=== PATIENT | male | born 1950 | race African-American/Black ===

== ENCOUNTER 2018-07-03 00:23 | Emergency (ER) | payer MEDICARE, OTHER ==
--- NOTE | 2018-07-03 00:38 | ED Physician Chart ---
ED Chief Complaint/HPI - Patient Information Date Seen:: 07/03/18 Time Seen:: 00:37 Chief Complaint:: Bilateral lower extremities edema History of Present Illness:: 68 yo male was brought from [facility] to ER for evaluation of bilateral lower extremities throbbing pain and edema for 3-4 days. Patient had history of left lower extremity DVT 2-3 years ago currently on eliquis 5mg bid. Patient stated that he could ambulate with walker for short distance. Patient denied any fever. Allergies:: Allergies Allergy/AdvReac Type Severity Reaction Status Date / Time No Known Allergies Allergy Verified 12/11/17 19:58 ED Review of Systems - Review of Systems General/Constitutional: No fever Skin: No bruising Head: No headache Eyes: No pain ENT: No nasal drainage Neck: No neck pain Cardio Vascular: No chest pain Pulmonary: No SOB GI: No nausea, No vomiting Musculoskeletal: Bone or joint pain Neurological: Weakness ED Past Medical History - Past Medical History Past Medical History: HTN, DM, CHF, Asthma/COPD, DVT/PE, Other (BPH) Social History: Smoker, No Alcohol, No Drug Use Surgical History: None Family Medical History - Family Member Mother History Unknown: Yes Hx Family Cancer: No Hx Family Coronary Artery Disease: No Hx Family Congestive Heart Failure: No Hx Family Hypertension: No Hx Family Stroke: No Hx Family Diabetes: No Hx Family Seizures: No Hx Family Dementia: No Hx Family AIDS: No Hx Family HIV: No Hx Family COPD: No Hx Family Hepatitis: No Hx Family Psychiatric Problems: No Hx Family Tuberculosis: No ED Physical Exam - Physical Examination General/Constitutional: Awake, Alert Head: Atraumatic Eyes: PERRL, EOMI Skin: No ecchymosis ENMT: Nasal exam nl Neck: No nuchal rigidity Respiratory: Nl effort/Exclusion Cardio Vascular: RRR, No murmur, gallop, rubs, NL S1 S2 GI: No tenderness/rebounding/guarding Other Extremities comments:: Diffuse 2+ edema of bilateral lower extremities, with warmness Neuro/Psych: Alert/oriented ED Labs/Radiology/EKG Results - Lab Results Results: Laboratory Last Values WBC 5.8 Th/cmm (4.8-10.8) 07/03/18 01:40 RBC 4.27 Mil/cmm (3.80-5.80) 07/03/18 01:40 Hgb 12.7 gm/dL (12-16) 07/03/18 01:40 Hct 38.8 % (41.0-60) L 07/03/18 01:40 MCV 90.8 fl (80-99) 07/03/18 01:40 MCH 29.7 pg (27.0-31.0) 07/03/18 01:40 MCHC Differential 32.7 pg (28.0-36.0) 07/03/18 01:40 RDW 16.9 % (11.5-20.0) 07/03/18 01:40 Plt Count 260 Th/cmm (150-400) 07/03/18 01:40 MPV 8.0 fl 07/03/18 01:40 Neutrophils % 54.1 % (40.0-80.0) 07/03/18 01:40 Lymphocytes % 33.5 % (20.0-50.0) 07/03/18 01:40 Monocytes % 9.3 % (2.0-10.0) 07/03/18 01:40 Eosinophils % 3.1 % (0.0-5.0) 07/03/18 01:40 Basophils % 0.0 % (0.0-2.0) 07/03/18 01:40 PT 10.3 SECONDS (9.5-11.5) 07/03/18 01:40 INR 0.99 (0.5-1.4) 07/03/18 01:40 PTT (Actin FS) 33.1 SECONDS (26.0-38.0) 07/03/18 01:40 D-Dimer 209 ng/mL (100-400) 07/03/18 01:40 Sodium 138 mEq/L (136-145) 07/03/18 01:40 Potassium 3.7 mEq/L (3.5-5.1) 07/03/18 01:40 Chloride 105 mEq/L (98-107) 07/03/18 01:40 Carbon Dioxide 25.6 mEq/L (21.0-31.0) 07/03/18 01:40 Anion Gap 11.1 (7.0-16.0) 07/03/18 01:40 BUN 11 mg/dL (7-25) 07/03/18 01:40 Creatinine 1.1 mg/dL (0.7-1.3) 07/03/18 01:40 Est GFR ( Amer) > 60.0 ml/min (>90) 07/03/18 01:40 Est GFR (Non-Af Amer) > 60.0 ml/min 07/03/18 01:40 BUN/Creatinine Ratio 10.0 07/03/18 01:40 Glucose 92 mg/dL (70-105) 07/03/18 01:40 Calcium 8.5 mg/dL (8.6-10.3) L 07/03/18 01:40 Total Bilirubin 0.2 mg/dL (0.3-1.0) L 07/03/18 01:40 AST 13 U/L (13-39) 07/03/18 01:40 ALT 13 U/L (7-52) 07/03/18 01:40 Alkaline Phosphatase 72 U/L (34-104) 07/03/18 01:40 Troponin I 0.01 ng/mL (0.01-0.05) 07/03/18 01:40 B-Natriuretic Peptide 10.0 pg/mL (5.0-100.0) 07/03/18 01:40 Total Protein 7.0 gm/dL (6.0-8.3) 07/03/18 01:40 Albumin 3.3 gm/dL (4.2-5.5) L 07/03/18 01:40 Globulin 3.7 gm/dL 07/03/18 01:40 Albumin/Globulin Ratio 0.9 (1.0-1.8) L 07/03/18 01:40 Triglycerides 61 mg/dL (<150) 07/03/18 01:40 Cholesterol 106 mg/dL (<200) 07/03/18 01:40 LDL Cholesterol Direct 69 mg/dL (75-193) L 07/03/18 01:40 HDL Cholesterol 37 mg/dL (23-92) 07/03/18 01:40 Urine Source CLEAN C 07/03/18 01:43 Urine Color YELLOW 07/03/18 01:43 Urine Clarity CLEAR (CLEAR) 07/03/18 01:43 Urine pH 5.5 (4.6 - 8.0) 07/03/18 01:43 Ur Specific Caroline 1.025 (1.005-1.030) 07/03/18 01:43 Urine Protein NEGATIVE mg/dL (NEGATIVE) 07/03/18 01:43 Urine Glucose (UA) NEGATIVE mg/dL (NEGATIVE) 07/03/18 01:43 Urine Ketones NEGATIVE mg/dL (NEGATIVE) 07/03/18 01:43 Urine Blood NEGATIVE (NEGATIVE) 07/03/18 01:43 Urine Nitrate NEGATIVE (NEGATIVE) 07/03/18 01:43 Urine Bilirubin NEGATIVE (NEGATIVE) 07/03/18 01:43 Urine Urobilinogen 0.2 E.U./dL (0.2 - 1.0) 07/03/18 01:43 Ur Leukocyte Esterase NEGATIVE (NEGATIVE) 07/03/18 01:43 - Radiology Results Results: CXR: mild cardiomegaly, no focal consolidation - EKG Interpretations EKG Time:: 00:49 Rate & Rhythm: 74 bpm, sinus rhythm Intervals: Borderline prolonged VT interval ED Assessment - Assessment General Assessment: 1. Bilateral lower extremities pain and severe edema. The differential diagnosis included but not limited to possible venous stasis, peripheral vascular disease, DVT, CHF exacerbation or cellulitis. 2. History of left lower extremity DVT on Eliquis 5mg bid 3. Hypertension 4. History of CHF, BNP 10 Assessment/Comments:: CBC, CMP, Trop, BNP, PT/PTT, D-Dimer CXR, EKG BLE venous u/s to rule out DVT BLE arterial u/s to rule out vascular disease Patient refused the ultrasound to be completed. Patient was unhappy that left forearm peripheral IV access was attempted multiple times. The Bilateral lower extremities pain and edema should be further evaluated and treated. A decision was made to call patient's primary physician Dr. Guzman for admission orders. However, patient was unhappy that Dr. Guzman did not return phone call for [address] Guzman called back around 6:20am, patient refused to talk to Dr. Guzman. Patient wanted to be sent back to [facility] and patient desired to talk to Dr. Guzman there. Patient refused to sign AMA form. ED Septic Shock - . Is Septic Shock (SBP<90, OR Lactate>4 mmol\L) present?: No ED Reassessment (Disposition) - Reassessment Reassessment Condition:: Unchanged - Patient Disposition Discharge/Transfer:: Against Medical Advice
[2018-07-03 01:49] LABS: % EOSINOPHILS 3.1 % (0.0-5.0); % LYMPHOCYTES 33.5 % (20.0-50.0); % MONOCYTES 9.3 % (2.0-10.0); % NEUTROPHILS 54.1 % (40.0-80.0); EOSINOPHILE ABSOLUTE 0.2 Th/cmm (0.1-0.4); HEMATOCRIT 38.8 % (41.0-60); HEMOGLOBIN 12.7 gm/dL (12-16); LYMPHOCYTE ABSOLUTE 1.9 Th/cmm (1.5-3.0); MEAN CELL VOLUME 90.8 fl (80-99); MEAN CORPUSCULAR HEMOGLOBIN 29.7 pg (27.0-31.0); MEAN CORPUSCULAR HGB CONC 32.7 pg (28.0-36.0); MONOCYTE ABSOLUTE 0.5 Th/cmm (0.3-1.0); NEUTROPHILE ABSOLUTE 3.2 Th/cmm (1.8-8.0); PLATELET COUNT 260 Th/cmm (150-400); RED BLOOD COUNT 4.27 Mil/cmm (3.80-5.80); RED CELL DISTRIBUTION WIDTH 16.9 % (11.5-20.0); WHITE BLOOD COUNT 5.8 Th/cmm (4.8-10.8)
[2018-07-03 02:01] LABS: ALB/GLOB RATIO 0.9 (1.0-1.8); ALBUMIN 3.3 gm/dL (4.2-5.5); ALKALINE PHOSPHATASE 72 U/L (34-104); ANION GAP 11.1 (7.0-16.0); BILIRUBIN,TOTAL 0.2 mg/dL (0.3-1.0); BUN - UREA NITROGEN 11 mg/dL (7-25); CALCIUM SERUM 8.5 mg/dL (8.6-10.3); CARBON DIOXIDE 25.6 mEq/L (21.0-31.0); CHLORIDE 105 mEq/L (98-107); CHOLESTEROL 106 mg/dL (<200); CREATININE - SERUM 1.1 mg/dL (0.7-1.3); GFR AFRICAN-AMERICAN > 60.0 ml/min (>90); GFR NON AFRICAN-AMERICAN > 60.0 ml/min; GLUCOSE 92 mg/dL (70-105); HDL -HIGH DENSITY LIPOPROTEIN 37 mg/dL (23-92); POTASSIUM SERUM 3.7 mEq/L (3.5-5.1); SGOT 13 U/L (13-39); SGPT/ALT 13 U/L (7-52); SODIUM SERUM 138 mEq/L (136-145); TRIGLYCERIDES 61 mg/dL (<150)
[2018-07-03 02:40] LABS: URINE SOURCE CLEAN C
[2018-07-03 02:42] LABS: URINE BILIRUBIN NEGATIVE (NEGATIVE); URINE BLOOD NEGATIVE (NEGATIVE); URINE GLUCOSE (UA) NEGATIVE (NEGATIVE); URINE KETONE NEGATIVE (NEGATIVE); URINE LEUKOCYTE ESTERASE NEGATIVE (NEGATIVE); URINE NITRATE NEGATIVE (NEGATIVE); URINE PH 5.5 (4.6 - 8.0); URINE PROTEIN NEGATIVE (NEGATIVE); URINE UROBILINOGEN 0.2 E.U./dL (0.2 - 1.0)
[2018-07-03 02:43] LABS: URINE CLARITY CLEAR (CLEAR); URINE COLOR YELLOW; URINE MICROSCOPIC INDICATED? NO
[2018-07-03 02:49] LABS: INR 0.99 (0.5-1.4); PROTHROMBIN TIME (TEST) 10.3 SECONDS (9.5-11.5)
--- NOTE | 2018-07-03 08:37 | Diagnostic Imaging Report ---
CHEST X-RAY: AP view INDICATION: Shortness of breath COMPARISON: 12/11/2017 FINDINGS: Increased interstitial lung markings are noted. There is no focal consolidation or pleural effusions mild cardiomegaly is noted. Degenerative changes of the spine are noted. IMPRESSION: Increased interstitial lung markings, nonspecific. No focal consolidation identified. Mild cardiomegaly.
== END 2018-07-03 08:52 | disposition left against medical advice (07) ==
LOC: ER 00:23
DX: R60.0 Localized edema (principal); M79.605 Pain in left leg; M79.604 Pain in right leg; I11.0 Hypertensive heart disease with heart failure; I50.9 Heart failure, unspecified; E11.9 Type 2 diabetes mellitus without complications; J44.9 Chronic obstructive pulmonary disease, unspecified; F17.200 Nicotine dependence, unspecified, uncomplicated; Z86.718 Personal history of other venous thrombosis and embolism; Z79.01 Long term (current) use of anticoagulants
CPT/HCPCS: 36415-UA; 71045-TC; 80053-TC; 80061-TC; 81003-TC; 83036-90; 83880-TC; 84484-TC; 85025-TC; 85379-TC; 85610-TC; 93005; Z7502